=== PATIENT | male | born 1960 | race Two or more races ===

== ENCOUNTER 2018-05-10 11:37 | Outpatient (CLI) | payer OTHER | END 2018-05-10 11:50 | disposition home or self-care (01) | LOC: RAD 11:37 | DX: M77.11 Lateral epicondylitis, right elbow (principal); M77.12 Lateral epicondylitis, left elbow; M77.21 Periarthritis, right wrist; M77.22 Periarthritis, left wrist ==

== ENCOUNTER 2019-08-01 17:17 | Emergency (ER) | payer OTHER ==
[~2019-08-01] VITALS: Ht 170.2 cm; Wt 68.9 kg
[2019-08-01] MEDS ORDERED: LAMICTAL200 MG (18:40)
== END 2019-08-01 20:36 | disposition home or self-care (01) ==
LOC: ER 17:17
DX: S00.93XA Contusion of unspecified part of head, initial encounter (principal); W22.8XXA Striking against or struck by other objects, initial encounter

== ENCOUNTER 2021-03-01 12:22 | Emergency (ER) | payer OTHER ==
[~2021-03-01] VITALS: Ht 170.2 cm; Wt 70.3 kg
[~2021-03-01 12:22] MED LIST: LAMICTAL200 MG
[2021-03-01] MEDS ORDERED: SYNTHROID75 MCG PO (13:17)
[2021-03-01] MEDS ORDERED: PROAIR RESPICL90 MCG IH (20:15)
[2021-03-24] MEDS ORDERED: AMOX1TAB5 PO (12:34)
== END 2021-03-01 20:27 | disposition home or self-care (01) ==
LOC: ER 12:22
DX: U07.1 COVID-19 (principal)

== ENCOUNTER 2021-03-20 10:33 | Emergency (ER) | payer OTHER ==
[~2021-03-20] VITALS: Ht 170.2 cm; Wt 70.3 kg
[~2021-03-20 10:33] MED LIST changes: +PROAIR RESPICL90 MCG IH; +SYNTHROID75 MCG PO
[2021-03-20] MEDS ORDERED: TRIUMEQ TABLET1 EACH PO (10:46)
[2021-03-20] MEDS ORDERED: METHYLPREDNISOL16 MG PO (10:49)
[2021-03-20] MEDS ORDERED: AZITHROMYCIN250 MG PO (10:49)
[2021-03-24] MEDS ORDERED: AMOX1TAB5 PO (12:34)
== END 2021-03-20 15:30 | disposition home or self-care (01) ==
LOC: ER 10:33
DX: R51.9 Headache, unspecified (principal)

== ENCOUNTER 2021-11-01 08:00 | Outpatient (CLI) | payer OTHER ==
[~2021-11-01 08:00] MED LIST changes: +AMOX1TAB5 PO; +AZITHROMYCIN250 MG PO; +METHYLPREDNISOL16 MG PO; +TRIUMEQ TABLET1 EACH PO
== END 2021-11-01 08:30 | disposition home or self-care (01) ==
LOC: PPH VACUNA 08:00
PROVIDERS: ATTEND Emergency Medicine Pediatric Emergency Medicine
DX: Z23 Encounter for immunization (principal)

== ENCOUNTER 2021-11-16 13:07 | Outpatient (CLI) | payer OTHER | END 2021-11-16 13:09 | disposition home or self-care (01) | LOC: LAB 13:07 | PROVIDERS: ATTEND Radiology Diagnostic Radiology | DX: D33.2 Benign neoplasm of brain, unspecified (principal) ==

== ENCOUNTER 2021-11-25 14:20 | Outpatient (CLI) | payer OTHER | END 2021-11-25 14:39 | disposition home or self-care (01) | LOC: RAD 14:20 | PROVIDERS: ATTEND Family Medicine | DX: D33.2 Benign neoplasm of brain, unspecified (principal); M12.542 Traumatic arthropathy, left hand; M65.232 Calcific tendinitis, left forearm | CPT/HCPCS: 70552 ==

== ENCOUNTER 2022-03-29 15:10 | Outpatient (CLI) | payer OTHER | END 2022-03-29 15:20 | disposition home or self-care (01) | LOC: PPH VACUNA 15:10 | PROVIDERS: ATTEND Emergency Medicine Pediatric Emergency Medicine | DX: Z23 Encounter for immunization (principal) ==

== ENCOUNTER 2023-09-12 16:25 | Outpatient (CLI) | payer OTHER | END 2023-09-12 16:30 | disposition home or self-care (01) | LOC: RAD 16:25 | PROVIDERS: ATTEND Family Medicine | DX: M25.571 Pain in right ankle and joints of right foot (principal) ==